=== PATIENT | male | born 1995 | race Caucasian/White ===

== ENCOUNTER 2018-05-08 15:55 | Emergency (ER) | payer MEDICAID, OTHER | END 2018-05-08 18:10 | disposition home or self-care (01) | LOC: FTE 15:55 | DX: S63.601A Unspecified sprain of right thumb, initial encounter (principal); W18.49XA Other slipping, tripping and stumbling without falling, initial encounter; Y92.9 Unspecified place or not applicable | CPT/HCPCS: 29130; 73140; 99283-25 ==